=== PATIENT | female | born 1960 | race Caucasian/White ===

== ENCOUNTER 2019-08-27 12:49 | Outpatient (CLI) | payer MEDICARE ==
[2019-08-27 13:47] LABS: URINE AMPHETAMINE SCREEN NEGATIVE (Neg); URINE BARBITUATE SCREEN NEGATIVE (Neg); URINE BENZODIAZEPINES SCREEN NEGATIVE (Neg); URINE CANNABINOID SCREEN NEGATIVE (Neg); URINE COCAINE SCREEN NEGATIVE (Neg); URINE METHADONE SCREEN NEGATIVE (Neg); URINE OPIATE SCREEN POSITIVE (Neg); URINE PHENCYCLIDINE SCREEN NEGATIVE (Neg)
== END 2019-08-27 23:59 | disposition home or self-care (01) ==
LOC: LAB 12:49
PROVIDERS: ATTEND Nurse Practitioner Family
DX: G89.4 Chronic pain syndrome (principal); Z87.891 Personal history of nicotine dependence
CPT/HCPCS: 80305

== ENCOUNTER 2021-05-21 21:01 | Emergency (ER) | payer MEDICARE, BC ==
[~2021-05-21] VITALS: Ht 180.3 cm; Wt 113.0 kg
[2021-05-21 21:19] VITALS: BP 134/70
== END 2021-05-21 22:45 | disposition home or self-care (01) ==
LOC: ER 21:02
DX: S93.401A Sprain of unspecified ligament of right ankle, initial encounter (principal); Q87.40 Marfan syndrome, unspecified; G89.29 Other chronic pain; X58.XXXA Exposure to other specified factors, initial encounter; Y93.01 Activity, walking, marching and hiking; Y92.89 Other specified places as the place of occurrence of the external cause; Y99.8 Other external cause status
CPT/HCPCS: 29515; 73610; 99284

== ENCOUNTER 2023-02-08 20:01 | Emergency (ER) | payer BC ==
[~2023-02-08] VITALS: Ht 180.3 cm; Wt 113.0 kg
[2023-02-09] MEDS ORDERED: metoprolol tartrate 50mg tablet PO ONE (00:20)
--- NOTE | 2023-02-09 00:27 | NUR ---
asymptomatic HTN tonight.
[2023-02-09 00:52] VITALS: BP 171/90
== END 2023-02-09 00:54 | disposition home or self-care (01) ==
LOC: ER 20:02
DX: I10 Essential (primary) hypertension (principal)
CPT/HCPCS: 99283